=== PATIENT | female | born 1955 | race American Indian/Alaskan Native ===

== ENCOUNTER 2016-11-18 07:52 | Outpatient (CLI) | payer BC | END 2016-11-18 07:53 | disposition home or self-care (01) | LOC: PET 07:52 | DX: C34.90 Malignant neoplasm of unspecified part of unspecified bronchus or lung (principal); Z79.899 Other long term (current) drug therapy | CPT/HCPCS: 82962 ==

== ENCOUNTER 2016-11-25 08:39 | Outpatient (CLI) | payer BC ==
--- NOTE | 2016-11-25 15:34 | PET Report ---
PET SB TO MT INITIAL: HISTORY: Initial staging of lung cancer. TECHNIQUE: 13.0 millicuries F-18 FDG was administered intravenously. Noncontrast CT images and PET images were obtained from the skull base to the proximal thighs. Fused images were reviewed on a workstation. The patient's blood glucose level measured 170. COMPARISON: None at this facility. FINDINGS: BRAIN: physiologic FDG uptake in the imaged brain. NECK: physiologic FDG uptake. MEDIASTINUM: An enlarged AP window lymph node measures 3.3 x 2.4 cm and demonstrates a max SUV of 8.9. LUNGS: Left upper lobe mass measures 4.7 x 4.0 cm. Max SUV measures 13.2. The remainder of the lungs are clear and without significant parenchymal disease. PLEURA/PERICARDIUM: physiologic FDG uptake. THORACIC LYMPH NODES: physiologic FDG uptake. HEPATOBILIARY: physiologic FDG uptake. Mean liver SUV measures 4.5. PANCREAS: physiologic FDG uptake. SPLEEN: physiologic FDG uptake. ADRENAL GLANDS: physiologic FDG uptake. KIDNEYS/RENAL COLLECTING SYSTEMS: physiologic FDG uptake. A few scattered renal calyceal stones and simple renal cysts are noted. BOWEL/MESENTERY: physiologic FDG uptake. PELVIC VISCERA: physiologic FDG uptake. ABDOMINAL/PELVIC LYMPH NODES: physiologic FDG uptake. MUSCULOSKELETAL: physiologic FDG uptake. IMPRESSION: Hypermetabolic left upper lobe mass consistent with primary lung cancer with metastasis to a single aorticopulmonary lymph node.
== END 2016-11-25 08:40 | disposition home or self-care (01) ==
LOC: PET 08:39
DX: C34.92 Malignant neoplasm of unspecified part of left bronchus or lung (principal); Z79.899 Other long term (current) drug therapy
CPT/HCPCS: 78815; 82962; A9552

== ENCOUNTER 2017-01-26 10:43 | Outpatient (CLI) | payer BC ==
[2017-01-26] MEDS ORDERED: FLUSH HEPARIN IV ONE ×2 (12:01→12:17)
--- NOTE | 2017-01-26 12:54 | Fluoroscopy Report ---
PORTAGRAM History: Lung cancer, malfunction of Vrbtef-a-Asta. Findings: [employer] film of the abdomen demonstrates a right Uhkent-a-Cgek which terminates near the cavoatrial junction. There is no obvious fracture or discontinuity of the tubing. 21 fluoroscopic cine images were obtained during the injection of IV contrast. There is normal filling of the Eloias-w-Fmja. There is no evidence for extravasation, occlusion or fibrin sheath. Impression: Normal Portagram.
== END 2017-01-26 10:44 | disposition home or self-care (01) ==
LOC: FLUORO 10:43
DX: C34.12 Malignant neoplasm of upper lobe, left bronchus or lung (principal); T82.598A Other mechanical complication of other cardiac and vascular devices and implants, initial encounter
CPT/HCPCS: 36598; J1642; Q9967